=== PATIENT | male | born 1965 | race Caucasian/White ===

== ENCOUNTER 2019-02-08 14:08 | Emergency (ER) | payer SELFPAY ==
--- NOTE | 2019-02-08 15:29 | RAD ---
FEXAM:PA and lateral chest HISTORY: Cough COMPARISON: None FINDINGS:Heart size and mediastinum are within normal limits. The lungs appear clear of infiltrates. No significant bony findings. IMPRESSION:No active intrathoracic disease.
[2019-02-08] MEDS ORDERED: Dexamethasone 10 MG/ML VIAL ONE (16:09)
== END 2019-02-08 17:12 | disposition home or self-care (01) ==
LOC: ERS 14:08
DX: J20.9 Acute bronchitis, unspecified (principal); F17.210 Nicotine dependence, cigarettes, uncomplicated; I10 Essential (primary) hypertension; F32.9 Major depressive disorder, single episode, unspecified; E11.9 Type 2 diabetes mellitus without complications; E78.00 Pure hypercholesterolemia, unspecified; Z71.6 Tobacco abuse counseling
CPT/HCPCS: 71046; 94640; 99406; J1100; J7620